=== PATIENT | female | born 1965 | race Caucasian/White ===

== ENCOUNTER 2016-09-15 13:14 | Outpatient (CLI) | payer BC, OTHER | END 2016-09-15 13:15 | disposition home or self-care (01) | DX: R05 Cough (principal) ==

== ENCOUNTER 2017-02-26 17:03 | Emergency (ER) | payer BC, OTHER ==
--- NOTE | 2017-02-26 17:30 | ED Physician Documentation ---
PD HPI LOWER EXT INJURY - Stated complaint Stated Complaint: LT KNEE PX - Chief complaint Chief Complaint: Ext Problem - History obtained from History obtained from: Patient - History of Present Illness PD HPI LOW EXT INJURY LOCATION: Left, Knee Type of injury: Other (worsening lateral and posterior knee pain x mos, now unable to walk. No clear injury. Known villar's cyst and H/O DJD on prior xray.) Review of Systems Constitutional: reports: Reviewed and negative. denies: Fever, Chills Skin: denies: Rash, Lesions Musculoskeletal: denies: Neck pain, Back pain PD PAST MEDICAL HISTORY - Past Medical History Past Medical History: Yes Respiratory: Asthma Other Past Medical History: connective tissue disorder, Kyaw Dominguez disease - Past Surgical History General: Cholecystectomy HEENT: Tonsil/Adenoidectomy - Present Medications Home Medications: Ambulatory Orders Medication Instructions Recorded Confirmed Cetirizine HCl [Zyrtec] 10 mg PO DAILY 01/15/16 02/26/17 Cyclobenzaprine [Flexeril] 10 mg PO DAILY 01/15/16 02/26/17 Duloxetine HCl [Cymbalta] 60 mg PO DAILY 01/15/16 02/26/17 Esomeprazole Magnesium [Nexium] 10 mg PO DAILY 01/15/16 02/26/17 Gabapentin 300 mg PO BID 01/15/16 02/26/17 Montelukast [Singulair] 10 mg PO QPM 01/15/16 02/26/17 Bupropion HCl [Wellbutrin Xl] 300 mg PO DAILY 02/26/17 02/26/17 Meloxicam [Mobic] 7.5 mg PO BIDWM PRN #15 tablet 02/26/17 Oxycodone HCl/Acetaminophen 1 - 2 tab PO Q4H PRN #15 tablet 02/26/17 [Percocet 5-325 mg Tablet] - Allergies Allergies/Adverse Reactions: Allergies Allergy/AdvReac Type Severity Reaction Status Date / Time clindamycin Allergy Hives Verified 01/15/16 16:01 Penicillins Allergy Hives Verified 01/15/16 16:00 - Social History Does the pt smoke?: No Smoking Status: Never smoker Does the pt drink ETOH?: No Does the pt have substance abuse?: Yes Substance Use and Type: Marijuana PD ED PE NORMAL - Vitals Vital signs reviewed: Yes - General General: Alert and oriented X 3, No acute distress - Extremities Extremities: Other (Adiposity makes landmarks difficult to ID on knee exam, no obvious effusion. Mild TTP lateral. No obvious ligamentous laxity.) - Neuro Neuro: Alert and oriented X 3, Normal speech - Psych Psych: Normal mood, Normal affect Results - Vitals Vitals: Vital Signs - 24 hr 02/26/17 17:07 Temperature 36.4 C L Heart Rate 86 Respiratory 16 Rate Blood Pressure 120/67 O2 Saturation 100 Oxygen O2 Source Room air - Rads (name of study) L knee 4v Radiology: EMP read contemporaneously (Mild OA, no frx.) PD MEDICAL DECISION MAKING - ED course ED course: She has subacute to chronic knee pain with negative x-rays that has made it difficult to walk. She did well after Toradol injection and a Percocet here and was able to ambulate with a walker. She already had planned to see an orthopedist in follow-up. Departure - Departure Disposition: 01 Home, Self Care Clinical Impression: Knee pain, left Qualifiers: Chronicity: chronic Qualified Code(s): M25.562 - Pain in left knee Condition: Good Record reviewed to determine appropriate education?: Yes Instructions: Knee Pain Follow-Up: Collins Rodas MD [Provider Admit Priv/Credential] - Prescriptions: Meloxicam [Mobic] 7.5 mg PO BIDWM PRN #15 tablet PRN Reason: Pain Oxycodone HCl/Acetaminophen [Percocet 5-325 mg Tablet] 1 - 2 tab PO Q4H PRN #15 tablet PRN Reason: Pain Comments: Call your doctor to arrange a follow-up appointment, make the next available appointment. In the interim, return anytime if worse or if new symptoms develop. Discharge Date/Time: 02/26/17 19:25
[2017-02-26] MEDS ORDERED: oxyCOD/ACETAMIN 5 MG/325 MG TABLET PO ONE (17:31)
[2017-02-26] MEDS ORDERED: KETOROLAC 60 MG/2 ML VIAL ONE (17:31)
[2017-02-26] MEDS: oxyCOD/ACETAMIN 5 MG/325 MG TABLET PO STA (17:36)
[2017-02-26] MEDS: KETOROLAC 60 MG/2 ML VIAL IM STA (17:55)
--- NOTE | 2017-02-26 18:02 | XRAY Preliminary Report ---
Exam: XR Knee 4 View LT IMPRESSION: Mild osteoarthritis. No evidence of fracture. [facility] SITE ID: [id number]
--- NOTE | 2017-02-26 18:05 | XRAY Report ---
EXAM: LEFT KNEE RADIOGRAPHY EXAM DATE: 02/26/2017 05:53 PM. CLINICAL HISTORY: Knee pain. COMPARISON: 03/22/2016. TECHNIQUE: 4 views. FINDINGS: Bones: Normal. No fractures or bone lesions. Joints: Mild osteoarthritis, stable. No effusion. Soft Tissues: Normal. No soft tissue swelling. IMPRESSION: Mild osteoarthritis. No evidence of fracture. [facility] Referring Provider Line: [phone] SITE ID: [id number]
[2017-02-26 19:20] VITALS: BP 120/67
== END 2017-02-26 19:25 | disposition home or self-care (01) ==
LOC: ED 17:03
DX: M25.562 Pain in left knee (principal); M71.20 Synovial cyst of popliteal space [Baker], unspecified knee; J45.909 Unspecified asthma, uncomplicated; B27.00 Gammaherpesviral mononucleosis without complication
CPT/HCPCS: 96372; 99283

== ENCOUNTER 2017-10-04 13:07 | Emergency (ER) | payer BC, OTHER ==
--- NOTE | 2017-10-04 14:17 | ED Physician Documentation ---
PD HPI NVD - Stated complaint Stated Complaint: DIARRHEA/FEVER/WEAKNESS/AB PX - Chief complaint Chief Complaint: Abd Pain - History obtained from History obtained from: Patient - History of Present Illness Timing - onset: Today Timing - duration: Hours Timing - details: Abrupt onset, Constant Associated symptoms: Abdominal pain (cramping), Dizzy, Loss of appetite. No: Fever, Hematemesis, Near syncope / syncope Contributing factors: Sick contact (traveled by plane 5 days ago and was visiting relatives who had flu like symptoms. Flew back last evening on plane. No noted unusual foods.) Improved by: No: Vomiting Worsened by: Eating Similar symptoms before: Has not had sx before Recently seen: Not recently seen Review of Systems Constitutional: reports: Chills, Myalgias. denies: Fever Nose: denies: Rhinorrhea / runny nose, Congestion Cardiac: denies: Chest pain / pressure Respiratory: denies: Dyspnea, Cough GI: reports: Abdominal Pain, Nausea, Vomiting, Diarrhea. denies: Abdominal Swelling, Hematemesis, Bloody / black stool Neurologic: reports: Generalized weakness. denies: Focal weakness, Numbness, Near syncope, Altered mental status, Headache PD PAST MEDICAL HISTORY - Past Medical History Past Medical History: Yes Respiratory: Asthma Psych: Anxiety, Post traumatic stress disorder Musculoskeletal: Osteoarthritis, Fibromyalgia Other Past Medical History: alena-danlos syndrome type 3 - Past Surgical History Past Surgical History: Yes General: Cholecystectomy, Colonoscopy HEENT: Tonsil/Adenoidectomy - Present Medications Home Medications: Ambulatory Orders Medication Instructions Recorded Confirmed Cetirizine HCl [Zyrtec] 10 mg PO DAILY 01/15/16 10/04/17 Cyclobenzaprine [Flexeril] 10 mg PO DAILY 01/15/16 10/04/17 Duloxetine HCl [Cymbalta] 60 mg PO DAILY 01/15/16 10/04/17 Gabapentin 900 mg PO BID 01/15/16 10/04/17 Montelukast [Singulair] 10 mg PO QPM 01/15/16 10/04/17 Bupropion HCl [Wellbutrin Xl] 300 mg PO DAILY 02/26/17 10/04/17 Oxycodone HCl/Acetaminophen 1 - 2 tab PO Q4H PRN #15 tablet 02/26/17 10/04/17 [Percocet 5-325 mg Tablet] Diphenoxylate HCl/Atropine 1 each PO Q6H PRN #20 tablet 10/04/17 [Diphenoxylate-Atrop 2.5-0.025] Ondansetron Odt [Zofran] 4 mg TL Q6H PRN #15 tablet 10/04/17 Pantoprazole [Protonix] 1 tab PO DAILY 10/04/17 10/04/17 Tramadol HCl 50 mg PO Q6H PRN #15 tablet 10/04/17 - Allergies Allergies/Adverse Reactions: Allergies Allergy/AdvReac Type Severity Reaction Status Date / Time clindamycin Allergy Hives Verified 10/04/17 13:51 Penicillins Allergy Hives Verified 10/04/17 13:51 - Social History Does the pt smoke?: No Smoking Status: Never smoker Does the pt drink ETOH?: Yes ETOH Use: Liquor Does the pt have substance abuse?: Yes Substance Use and Type: Marijuana - Immunizations Immunizations are current?: Yes - POLST Patient has POLST: No PD ED PE NORMAL - Vitals Vital signs reviewed: Yes - General General: Alert and oriented X 3, Well developed/nourished, Other (appears uncomfortable with holding emesis bag. Nauseated currently. ) - HEENT HEENT: PERRL, Pharynx benign. No: Moist mucous membranes - Neck Neck: Supple, no meningeal sign, No adenopathy - Cardiac Cardiac: RRR, No murmur - Respiratory Respiratory: Clear bilaterally - Abdomen Abdomen: Normal bowel sounds, Soft, Non tender, Non distended, No organomegaly - Back Back: No CVA TTP - Derm Derm: Normal color, Warm and dry - Extremities Extremities: No deformity, No tenderness to palpate - Neuro Neuro: Alert and oriented X 3, No motor deficit, Normal speech Results - Vitals Vitals: Vital Signs - 24 hr 10/04/17 10/04/17 13:11 15:59 Temperature 37.4 C 37.3 C Heart Rate 92 87 Respiratory 42 H 18 Rate Blood Pressure 125/81 H 125/67 O2 Saturation 100 100 Oxygen O2 Source Room air - Labs Labs: Laboratory Tests 10/04/17 14:35 Sodium 141 Potassium 3.3 L Chloride 107 Carbon Dioxide 22 Anion Gap 12.0 BUN 13 Creatinine 0.7 Estimated GFR (MDRD) 89 Glucose 127 H Calcium 8.6 Magnesium 1.8 Total Bilirubin 0.7 AST 35 ALT 29 Alkaline Phosphatase 54 Total Protein 6.8 Albumin 3.8 Globulin 3.0 Albumin/Globulin Ratio 1.3 Lipase < 10 L PD MEDICAL DECISION MAKING - ED course Complexity details: considered differential (abrupt vomiting and diarrhea with recent travel. Presume viral or food related. She is feeling better with IV fluids and meds. Able to take oral fluids here. ), d/w patient Departure - Departure Disposition: 01 Home, Self Care Clinical Impression: Nausea vomiting and diarrhea, Dehydration Condition: Stable Record reviewed to determine appropriate education?: Yes Instructions: ED Diet Vomiting Diarrhea Follow-Up: Shilpi Krishnan ARNP [Primary Care Provider] - Prescriptions: Diphenoxylate HCl/Atropine [Diphenoxylate-Atrop 2.5-0.025] 1 each PO Q6H PRN # 20 tablet PRN Reason: Diarrhea Ondansetron Odt [Zofran] 4 mg TL Q6H PRN #15 tablet PRN Reason: Nausea / Vomiting Tramadol HCl 50 mg PO Q6H PRN #15 tablet PRN Reason: Pain Comments: Small frequent fluids. Use ondansetron if needed for nausea. Lomotil if needed for diarrhea. Use Tylenol if needed for cramps and pains. Add tramadol if needed. Start bland food initially and progress as able. Recheck if not improved over the next day. Discharge Date/Time: 10/04/17 18:35
[2017-10-04] MEDS ORDERED: SODIUM CHLORIDE 0.9% 1,000 ML IV ONE ×3 (14:27→16:20)
[2017-10-04] MEDS ORDERED: ONDANSETRON 4 MG/2 ML VIAL IVP STA (14:27)
[2017-10-04] MEDS ORDERED: KETOROLAC 60 MG/2 ML VIAL IVP STA (14:27)
[2017-10-04] MEDS ORDERED: DIPHENOX/ATROPINE 2.5/0.025 MG TABLET PO STA ×2 (14:28→17:11)
[2017-10-04 15:23] LABS: ALBUMIN 3.8 g/dL (3.2-5.5); ALBUMIN/GLOBULIN RATIO 1.3 (1.0-2.2); ALKALINE PHOSPHATASE 54 IU/L (42-121); ALT ALANINE AMINOTRANSFERASE 29 IU/L (10-60); AST ASPARTATE AMINOTRANSFERASE 35 IU/L (10-42); BILIRUBIN,TOTAL 0.7 mg/dL (0.2-1.0); BUN - BLOOD UREA NITROGEN 13 mg/dL (6-20); CALCIUM 8.6 mg/dL (8.5-10.3); CARBON DIOXIDE - CO2 22 mmol/L (21-32); CHLORIDE 107 mmol/L (101-111); CREATININE 0.7 mg/dL (0.4-1.0); GFR - MDRD 89 (>89); GLUCOSE 127 mg/dL (70-100); LIPASE < 10 U/L (22-51); MAGNESIUM 1.8 mg/dL (1.7-2.8); SODIUM 141 mmol/L (135-145); TOTAL PROTEIN 6.8 g/dL (6.7-8.2)
[2017-10-04] MEDS ORDERED: METOCLOPRAMIDE 10 MG/2 ML VIAL IVP STA (15:55)
[2017-10-04] MEDS ORDERED: ACETAMINOPHEN 1,000 MG/100 ML 100 ML IV STA (15:56)
[2017-10-04 16:01] VITALS: BP 125/67
== END 2017-10-04 18:35 | disposition home or self-care (01) ==
LOC: ED 13:07
DX: E86.0 Dehydration (principal); R11.2 Nausea with vomiting, unspecified; R19.7 Diarrhea, unspecified; M19.90 Unspecified osteoarthritis, unspecified site; M79.7 Fibromyalgia; Q79.6 Ehlers-Danlos syndromes
CPT/HCPCS: 36415; 80053; 83690; 83735; 96361; 96365; 96375; 99283; 99284; A9270; J0131

== ENCOUNTER 2017-10-19 11:02 | Outpatient (CLI) | payer BC, OTHER ==
[2017-10-19 17:46] LABS: BASOPHILS # (AUTO) 0.1 10^3/uL (0.0-0.1); BASOPHILS % (AUTO) 0.9 %; EOSINOPHILS # (AUTO) 0.2 10^3/uL (0.0-0.7); HGB - HEMOGLOBIN 13.3 g/dL (12.0-16.0); LYMPHOCYTES # (AUTO) 2.2 10^3/uL (1.5-3.5); LYMPHOCYTES % (AUTO) 25.7 %; MEAN CORPUSCULAR HEMOGLOBIN 29.2 pg (27.0-31.0); MEAN CORPUSCULAR HGB CONC 32.5 g/dL (32.0-36.0); MEAN CORPUSCULAR VOLUME 89.8 fL (81.0-99.0); MEAN PLATELET VOLUME 9.7 fL (7.9-10.8); MONOCYTES # (AUTO) 0.9 10^3/uL (0.0-1.0); NEUTROPHILS # (AUTO) 5.1 10^3/uL (1.5-6.6); NEUTROPHILS % (AUTO) 60.4 %; PLT - PLATELET COUNT 318 10^3/uL (130-450); RED BLOOD COUNT 4.57 10^6/uL (4.20-5.40); RED CELL DISTRIBUTION WIDTH 13.9 % (12.0-15.0); WHITE BLOOD COUNT 8.4 x10^3/uL (4.8-10.8)
[2017-10-19 18:12] LABS: ALBUMIN 3.9 g/dL (3.2-5.5); ALBUMIN/GLOBULIN RATIO 1.2 (1.0-2.2); ALKALINE PHOSPHATASE 65 IU/L (42-121); ALT ALANINE AMINOTRANSFERASE 13 IU/L (10-60); AMYLASE 52 U/L (28-100); AST ASPARTATE AMINOTRANSFERASE 17 IU/L (10-42); BILIRUBIN,TOTAL 0.6 mg/dL (0.2-1.0); BUN - BLOOD UREA NITROGEN 7 mg/dL (6-20); CALCIUM 9.1 mg/dL (8.5-10.3); CARBON DIOXIDE - CO2 24 mmol/L (21-32); CHLORIDE 103 mmol/L (101-111); CHOLESTEROL 163 mg/dL; CREATININE 0.7 mg/dL (0.4-1.0); GFR - MDRD 89 (>89); GLUCOSE 85 mg/dL (70-100); HDL CHOLESTEROL 55 mg/dL; LDL CHOLESTEROL,CALCULATED 89 mg/dL; LDL/HDL RATIO 1.6 (<4.4); LIPASE 16 U/L (22-51); SODIUM 136 mmol/L (135-145); TOTAL PROTEIN 7.1 g/dL (6.7-8.2); VLDL CHOLESTEROL 19 mg/dL
== END 2017-10-19 11:03 | disposition home or self-care (01) ==
LOC: LAB.F 11:02
PROVIDERS: ATTEND Nurse Practitioner Family
DX: R19.7 Diarrhea, unspecified (principal); R10.9 Unspecified abdominal pain
CPT/HCPCS: 36415; 80053; 80061; 82150; 83690; 83721; 84443; 85025

== ENCOUNTER 2017-10-27 06:21 | Outpatient (CLI) | payer BC, OTHER ==
[2017-10-27] MEDS ORDERED: IOPAMIDOL-300 50 ML VIAL ONE (06:33)
[2017-10-27] MEDS ORDERED: IOPAMIDOL-300 100 ML VIAL ONE (06:33)
[2017-10-27] MEDS ORDERED: IOPAMIDOL-300 50 ML VIAL PO ONE (10:18)
[2017-10-27] MEDS ORDERED: IOPAMIDOL-300 100 ML VIAL IVP ONE (10:18)
--- NOTE | 2017-10-27 11:15 | CT Report ---
CT ABDOMEN AND PELVIS WITH CONTRAST: 10/27/2017 CLINICAL INDICATION: Persistent diarrhea, pain. TECHNIQUE: Axial CT images of the abdomen and pelvis were obtained with 100 mL Isovue 300 intravenously as well as oral contrast. COMPARISON: 07/05/2010. FINDINGS: Limited evaluation of the lung bases is unremarkable. ABDOMEN: A suture line is noted in the stomach. No bowel dilatation is present. The patient is status post cholecystectomy. The liver, spleen, pancreas, kidneys and adrenal glands are unremarkable. No bowel dilatation, free gas, or free fluid is present. No abdominal adenopathy is present. PELVIS: There is inflammation around the sigmoid colon, with multiple diverticula present, compatible with uncomplicated diverticulitis. No abscess or perforation is identified. No free fluid or pelvic adenopathy is seen. The pelvic organs appear unremarkable. Osseous structures demonstrate degenerative changes. IMPRESSION: UNCOMPLICATED SIGMOID DIVERTICULITIS. CT DOSE REDUCTION STATEMENT In accordance with CT protocol optimization, one or more of the following dose reduction techniques were utilized for this exam: automated exposure control, adjustment of mA and/or KV based on patient size, or use of iterative reconstructive technique. TD: 10/27/2017 11:13
== END 2017-10-27 06:22 | disposition home or self-care (01) ==
LOC: DI 06:21
PROVIDERS: ATTEND Registered Nurse
DX: K57.32 Diverticulitis of large intestine without perforation or abscess without bleeding (principal)
CPT/HCPCS: 74177; Q9967